=== PATIENT | male | born 1980 | race Caucasian/White ===

== ENCOUNTER 2017-04-06 11:45 | Emergency (ER) | payer BC ==
[~2017-04-06] VITALS: Ht 175.3 cm; Wt 124.7 kg
[2017-04-06] MEDS ORDERED: ACETAMINOPHEN 325 MG TAB PO ONE (12:30)
--- NOTE | 2017-04-06 13:10 | Diagnostic Imaging Report ---
PROCEDURE: Frontal and lateral views of the chest. COMPARISON: Patients [facility], , CHEST 2 VIEWS, 02/10/2016, 11:14. INDICATIONS: COUGH, FEVER, WEAKNESS FINDINGS: Lines/tubes: None. Lungs: The lungs are well inflated and clear. There is no evidence of pneumonia or pulmonary edema. Pleura: There is no pleural effusion or pneumothorax. Heart and mediastinum: The heart and the mediastinum are normal. Bones: No acute bony abnormality. IMPRESSION: 1. No acute cardiopulmonary abnormalities. Андрей Back M.D. Dictated by: Андрей Back M.D. on 04/06/2017 at 13:19 Electronically approved by: Андрей Back M.D. on 04/06/2017 at 13:19
[2017-04-06 13:29] LABS: STREPTOCOCCUS GRP A ANTIGEN NEGATIVE (NEGATIVE)
[2017-04-06 13:34] LABS: INFLUENZAE A&B ANTIGEN (RAPID) NEGATIVE (NEGATIVE)
== END 2017-04-06 15:43 | disposition home or self-care (01) ==
LOC: ER 11:45
DX: R05 Cough (principal); J02.9 Acute pharyngitis, unspecified; R11.2 Nausea with vomiting, unspecified; R19.7 Diarrhea, unspecified
CPT/HCPCS: 71020; 83518; 87070; 87400; 99284